=== PATIENT | male | born 1990 | race Caucasian/White ===

== ENCOUNTER 2018-12-24 09:04 | Emergency (ER) | payer MEDICAID ==
[~2018-12-24] VITALS: Ht 180.3 cm; Wt 90.7 kg
[~2018-12-24 09:04] MED LIST: BENADRYL25 MG PO; IBU-8800 MG PO; NO DAILY MEDS; PEN-VEE K500 MG PO; PENICILLIN VK500 MG PO; PREDNICOT20 MG PO; ROBITUSSIN AC 10 MG/ PO; TRAMADOL HCL50 MG PO; TRIMOX500 MG PO; VOLTAREN50 M1 PO; ZITHROMAX250 MG PO
[2018-12-24 09:06] VITALS: BP 143/79
== END 2018-12-24 10:55 | disposition home or self-care (01) ==
LOC: ED 09:04
DX: M25.532 Pain in left wrist (principal); R20.2 Paresthesia of skin; R20.0 Anesthesia of skin; F17.200 Nicotine dependence, unspecified, uncomplicated; X58.XXXA Exposure to other specified factors, initial encounter; Y93.89 Activity, other specified; Y92.89 Other specified places as the place of occurrence of the external cause; Y99.8 Other external cause status

== ENCOUNTER 2019-01-04 19:35 | Emergency (ER) | payer MEDICAID ==
[~2019-01-04] VITALS: Ht 180.3 cm; Wt 90.7 kg
[2019-01-04 19:37] VITALS: BP 158/107
[2019-01-04] MEDS ORDERED: MEDROL DOSEPAK4 MG PO (20:16)
[2019-01-04] MEDS ORDERED: CYCLOBENZAPRINE10 MG PO (20:16)
== END 2019-01-04 20:25 | disposition home or self-care (01) ==
LOC: ED 19:35
DX: M54.5 Low back pain (principal)

== ENCOUNTER → 2019-02-22 | Outpatient (CLI) | payer OTHER ==
[~2019-02-22] MED LIST changes: +CYCLOBENZAPRINE10 MG PO; +MEDROL DOSEPAK4 MG PO
[2019-02-22 10:06] LABS: HEMATOCRIT 47.4 % (42.0-52.0); HEMOGLOBIN 15.8 g/dl (14.0-18.0); MEAN CELL VOLUME 92.9 fl (80.0-94.0); MEAN CORPUSCULAR HGB CONC 33.3 g/dl (33.0-37.0); MEAN PLATELET VOLUME 10.2 fl (9.6-12.3); RED BLOOD COUNT 5.1 10*6/uL (4.50-5.90); RED CELL DISTRI WIDTH 11.9 % (0-14.5); WHITE BLOOD COUNT 9.4 10*3/uL (4.8-10.8)
[2019-02-22 10:40] LABS: ALBUMIN 3.8 gm/dl (3.1-4.5); ALKALINE PHOSPHATASE 50 U/L (45-117); BUN 13 mg/dl (7-24); CHLORIDE 107 mmol/L (98-107); CHOLESTEROL 212 mg/dL (<200); CREATININE 0.93 mg/dL (0.70-1.30); HDL CHOLESTEROL 38 mg/dl (40-60); LDL CHOLESTEROL 132 mg/dL (9-159); POTASSIUM 3.6 mmol/L (3.5-5.1); SGOT/AST 21 IU/L (3-35); SGPT/ALT 43 U/L (12-78); SODIUM 141 mmol/L (136-145); TOTAL PROTEIN 7.5 gm/dL (6.4-8.2); TRIGLYCERIDES 212 mg/dl (<150); VLDL CHOLESTEROL 42 mg/dL (6-40)
== END | disposition home or self-care (01) ==
LOC: LAB 09:34
PROVIDERS: Family Medicine
DX: R53.83 Other fatigue (principal); M25.531 Pain in right wrist; E78.00 Pure hypercholesterolemia, unspecified

== ENCOUNTER → 2019-08-16 | Outpatient (CLI) | payer OTHER | END | disposition home or self-care (01) | LOC: COVID19 00:15 | DX: R05 Cough (principal); R50.9 Fever, unspecified; Z20.828 Contact with and (suspected) exposure to other viral communicable diseases ==

== ENCOUNTER → 2020-04-16 | Outpatient (CLI) | payer OTHER | END | disposition home or self-care (01) | LOC: COVID19 13:58 | PROVIDERS: ATTEND Internal Medicine | DX: U07.1 COVID-19 (principal) ==

== ENCOUNTER 2021-07-17 18:25 | Emergency (ER) | payer OTHER ==
[2021-07-17 19:20] VITALS: BP 118/61
== END 2021-07-17 22:25 | disposition home or self-care (01) ==
LOC: ED 18:25
DX: T50.901A Poisoning by unspecified drugs, medicaments and biological substances, accidental (unintentional), initial encounter (principal); Y92.89 Other specified places as the place of occurrence of the external cause

== ENCOUNTER → 2022-11-08 | Outpatient (CLI) | payer OTHER | END | disposition home or self-care (01) | LOC: RAD 16:51 | PROVIDERS: ATTEND Family Medicine | DX: M25.511 Pain in right shoulder (principal) ==